=== PATIENT | female | born 1960 | race Caucasian/White ===

== ENCOUNTER → 2018-08-24 | Outpatient (CLI) | payer OTHER ==
[~2018-08-24] MED LIST: ALBU.083IS; ALBU.083IS IH; ALBU90OI; ALBU90OI6; ALBU90OI6 INH; Advair Hfa 230-12 GM; BENZ100A PO; CEPH500 PO; CIPR250 PO; CLON.5 PO; CYCL10 PO; DIPH50 PO; DOXY100 PO; FLUO20 PO; FLUSAL2505 IH; HYDACE10B PO; HYDACE5; HYDGUAL120 PO; HYDHCL10; HYOS.375ER; IBUP800 PO; IPRAIS; LEVSOD100; LEVSOD150; LEVSOD150 PO; META800; META800 PO; METF500 PO; METPRE4DP PO; METR500 PO; NAPR250; NAPR500; NEXIUM; OMEP20ER; OMEPRAZOLE MAGN20 MG; OXYACE5T PO; PROACE100 PO; ROSU10TA; RXHYDACE PO; RXPROACE PO; SERT100; SERT100 PO; SERT50; TIZANIDINE HCL2 MG; TRAM50; TRAM50 PO; TRAZ50; VENL150ER PO; Ventolin Soln3 ML INH; Zofran Odt4 MG SL
== END | disposition home or self-care (01) ==
LOC: LAB UCHC 17:20 → LAB SHORT 17:20
DX: R30.0 Dysuria (principal)
CPT/HCPCS: 87086

== ENCOUNTER 2019-06-11 02:27 | Emergency (ER) | payer OTHER ==
[~2019-06-11] VITALS: Ht 157.5 cm; Wt 97.5 kg
[~2019-06-11 02:27] MED LIST changes: -OMEPRAZOLE MAGN20 MG; +OMEPRAZOLE MAGN20 MG PO
== END 2019-06-11 03:45 | disposition home or self-care (01) ==
LOC: ER 02:27
DX: M75.51 Bursitis of right shoulder (principal); J45.909 Unspecified asthma, uncomplicated; E11.9 Type 2 diabetes mellitus without complications; G47.30 Sleep apnea, unspecified; E03.9 Hypothyroidism, unspecified; Z87.891 Personal history of nicotine dependence; Z88.5 Allergy status to narcotic agent; Z88.6 Allergy status to analgesic agent; Z88.8 Allergy status to other drugs, medicaments and biological substances; Z79.899 Other long term (current) drug therapy
CPT/HCPCS: 96372; 99282; A9270; J1885; J7512

== ENCOUNTER → 2020-02-08 | Outpatient (CLI) | payer OTHER ==
[~2020-02-08] MED LIST changes: +ALBU90OI INH; +AZELASTINE137 MCG/01; +BUSP10 PO; +DICLOFENAC SOD100 GM TP; +FOLI1 PO; +Flonase 0.05% N16 GM; +LEVSOD100 PO; +Magnesium250 MG PO; +OMEP20ER PO; +PRISTIQ ER25 MG PO; +SYMBICORT 160-4.6 GM INH; +VITAMIN B-50 C0.4 MG PO; +VITAMIN D5000 UNIT PO; +ZYRTEC10 M2 PO
== END | disposition home or self-care (01) ==
LOC: LAB 18:25 → LAB SHORT 18:25
DX: N39.0 Urinary tract infection, site not specified (principal)
CPT/HCPCS: 87086

== ENCOUNTER 2020-03-25 06:33 | Day surgery (SDC) | payer OTHER ==
[~2020-03-25] VITALS: Ht 157.5 cm; Wt 99.3 kg
[~2020-03-25 06:33] MED LIST changes: -AZELASTINE137 MCG/01; -BUSP10 PO; -DICLOFENAC SOD100 GM TP; -Flonase 0.05% N16 GM; -ZYRTEC10 M2 PO
[2020-03-25] MEDS ORDERED: ZYRTEC10 M2 PO (07:35)
[2020-03-25] MEDS ORDERED: AZELASTINE137 MCG/01 (07:35)
--- NOTE | 2020-03-25 07:38 | NUR ---
03/25/20 0738 Mayra Thomas 15ML OF BLOOD DRAWN FOR PRP. PT TOLERATED WELL.
--- NOTE | 2020-03-25 08:48 | NUR ---
03/25/20 0848 Adrián Middleton 1 MG EPI ADDED TO EACH OF THE FIRST 3 BAGS OF LR FOR IRRIGATION PER ORDER.
--- NOTE | 2020-03-25 09:47 | NUR ---
03/25/20 0947 LISA INFANTE PT U PTO RECLINER WITH SBA/ VSS ON ROOM AIR, NC WITH 2L O2 WHEN O2 SATS DROP BELOW 92% (HAVE NOT HAD TO USE SINCE TRANSFER TO STEP DOWN) PT TOELRATING SIPS OF PO INTAKE AND DENIES PAIN/NAUSEA.
== END 2020-03-25 10:33 | disposition home or self-care (01) ==
LOC: ORSCSDS 06:33
PROVIDERS: Orthopaedic Surgery
PROC: 0XU Anatomical Regions, Upper Extremities, Supplement (ICD-10-PCS; 2020-03-25)
PROC: 0RNK4ZZ Release Left Shoulder Joint, Percutaneous Endoscopic Approach (ICD-10-PCS; principal; 2020-03-25 08:00)
PROC: 0LQ24ZZ Repair Left Shoulder Tendon, Percutaneous Endoscopic Approach (ICD-10-PCS; principal; 2020-03-25 08:00)
DX: M75.112 Incomplete rotator cuff tear or rupture of left shoulder, not specified as traumatic (principal); M75.42 Impingement syndrome of left shoulder; I10 Essential (primary) hypertension; J45.909 Unspecified asthma, uncomplicated; G47.33 Obstructive sleep apnea (adult) (pediatric); E11.9 Type 2 diabetes mellitus without complications; K21.9 Gastro-esophageal reflux disease without esophagitis; E03.9 Hypothyroidism, unspecified; M79.7 Fibromyalgia; E66.01 Morbid (severe) obesity due to excess calories; Z68.41 Body mass index [BMI] 40.0-44.9, adult; Z79.899 Other long term (current) drug therapy
CPT/HCPCS: 82947; A9270; C1713; J0171; J0690; J1100; J2250; J2405; J2704; J3010; J7040; J7120

== ENCOUNTER 2020-05-05 09:48 | Emergency (ER) | payer OTHER ==
[~2020-05-05] VITALS: Ht 154.9 cm; Wt 100.2 kg
[~2020-05-05 09:48] MED LIST changes: +AZELASTINE137 MCG/01; +ZYRTEC10 M2 PO
[2020-05-05] MEDS ORDERED: SYMBICORT 160-4.6 GM INH (10:02)
[2020-05-05] MEDS ORDERED: DICLOFENAC SOD100 GM TP (10:03)
[2020-05-05] MEDS ORDERED: Flonase 0.05% N16 GM (10:04)
[2020-05-05] MEDS ORDERED: BUSP10 PO (10:08)
[2020-05-05 10:24] LABS: BASOPHILS ABSOLUTE AUTO 0.07 K/mm3 (0.00-0.23); BASOPHILS PERCENT AUTO 1 % (0-2); EOSINOPHILS ABSOLUTE AUTO 0.31 K/mm3 (0.00-0.68); EOSINOPHILS PERCENT AUTO 4 % (0-6); Hematocrit 39.2 % (33.0-51.0); Hemoglobin 13.3 g/dL (11.5-16.0); IMMATURE GRAN ABSOLUTE AUTO 0.05 K/mm3 (0.00-0.10); IMMATURE GRAN PERCENT AUTO 1 % (0-1); LYMPHOCYTES ABSOLUTE AUTO 1.68 K/mm3 (0.84-5.20); LYMPHOCYTES PERCENT AUTO 19 % (21-46); MONOCYTES ABSOLUTE AUTO 0.75 K/mm3 (0.16-1.47); MONOCYTES PERCENT AUTO 9 % (4-13); Mean Corpuscular HGB 29.8 pg (26.0-34.0); Mean Corpuscular HGB Conc 33.9 g/dL (31.5-36.5); Mean Corpuscular Volume 88 fL (80-100); Mean Platelet Volume 9.2 fL (9.1-12.4); NEUTROPHILS ABSOLUTE AUTO 5.97 K/mm3 (1.96-9.15); NEUTROPHILS PERCENT AUTO 68 % (41-73); Platelet Count 281 K/mm3 (150-400); RDW Coefficient Variation 12.2 % (11.7-14.2); RDW Standard Deviation 39.1 fL (35.1-46.3); Red Blood Cell Count 4.46 M/mm3 (3.80-5.20); White Blood Cell Count 8.83 K/mm3 (4.00-11.30)
[2020-05-05 10:43] LABS: Alanine Aminotransfer (ALT/SGP 29 U/L (12-78); Albumin, Blood 3.6 g/dL (3.4-5.0); Albumin/Globulin Ratio 1.2 (0.8-1.8); Alk Phos 81 U/L (50-136); Anion Gap 7 mmol/L (6-16); Aspartate Aminotrans (AST/SGOT 16 U/L (12-37); Bilirubin, Total 0.9 mg/dL (0.1-1.0); Blood Urea Nitrogen 10 mg/dL (8-24); Bun/Creatinine Ratio 13.6 (12.0-20.0); CO2, Blood 23 mmol/L (21-32); Calcium, Blood 8.7 mg/dL (8.5-10.1); Chloride, Blood 111 mmol/L (98-108); Creatinine, Blood 0.74 mg/dL (0.40-1.00); Globulin, Blood 3.1 g/dL (2.2-4.0); Glomerular Filtration Rate >60 (60-); Glucose, Blood 154 mg/dL (70-99); Potassium, Blood 3.6 mmol/L (3.5-5.5); Sodium, Blood 141 mmol/L (136-145); Total Protein, Blood 6.7 g/dL (6.4-8.2)
== END 2020-05-05 12:24 | disposition home or self-care (01) ==
LOC: ER 09:48
PROVIDERS: Emergency Medicine
DX: K85.90 Acute pancreatitis without necrosis or infection, unspecified (principal); J45.909 Unspecified asthma, uncomplicated; E03.9 Hypothyroidism, unspecified; E11.9 Type 2 diabetes mellitus without complications; Z79.51 Long term (current) use of inhaled steroids; Z79.899 Other long term (current) drug therapy; Z87.891 Personal history of nicotine dependence; Z88.5 Allergy status to narcotic agent; Z88.8 Allergy status to other drugs, medicaments and biological substances; Z88.1 Allergy status to other antibiotic agents
CPT/HCPCS: 36415; 74177; 80053; 83690; 85025; 99284-25; Q9967

== ENCOUNTER → 2020-10-24 | Outpatient (CLI) | payer OTHER ==
[~2020-10-24] MED LIST changes: +BUSP10 PO; +DICLOFENAC SOD100 GM TP; +Flonase 0.05% N16 GM
[2020-10-24 17:47] LABS: BASOPHILS PERCENT AUTO 0 % (0-2); EOSINOPHILS ABSOLUTE AUTO 0.01 K/mm3 (0.00-0.68); EOSINOPHILS PERCENT AUTO 0 % (0-6); Hemoglobin 13.1 g/dL (11.5-16.0); IMMATURE GRAN ABSOLUTE AUTO 0.03 K/mm3 (0.00-0.10); IMMATURE GRAN PERCENT AUTO 1 % (0-1); LYMPHOCYTES PERCENT AUTO 17 % (21-46); MONOCYTES ABSOLUTE AUTO 0.47 K/mm3 (0.16-1.47); MONOCYTES PERCENT AUTO 10 % (4-13); Mean Corpuscular HGB 30.1 pg (26.0-34.0); Mean Corpuscular HGB Conc 35.4 g/dL (31.5-36.5); Mean Corpuscular Volume 85 fL (80-100); Mean Platelet Volume 9.7 fL (9.1-12.4); NEUTROPHILS ABSOLUTE AUTO 3.37 K/mm3 (1.96-9.15); NEUTROPHILS PERCENT AUTO 72 % (41-73); Platelet Count 212 K/mm3 (150-400); RDW Coefficient Variation 12.1 % (11.7-14.2); RDW Standard Deviation 37.3 fL (35.1-46.3); Red Blood Cell Count 4.35 M/mm3 (3.80-5.20); White Blood Cell Count 4.68 K/mm3 (4.00-11.30)
[2020-10-24 18:06] LABS: Anion Gap 11 mmol/L (6-16); Blood Urea Nitrogen 12 mg/dL (8-24); CO2, Blood 27 mmol/L (21-32); Chloride, Blood 100 mmol/L (98-108); Creatinine, Blood 0.92 mg/dL (0.40-1.00); Glomerular Filtration Rate >60 (60-); Glucose, Blood 90 mg/dL (70-99); Potassium, Blood 3.7 mmol/L (3.5-5.5); Sodium, Blood 138 mmol/L (136-145); Thyroid Stimulating Hormone 3.406 uIU/mL (0.360-4.800); Troponin I <0.017 ng/mL (0.000-0.040)
== END | disposition home or self-care (01) ==
LOC: LAB 17:40 → LAB SHORT 17:40
PROVIDERS: Physician Assistant Surgical
DX: R07.9 Chest pain, unspecified (principal); R53.83 Other fatigue
CPT/HCPCS: 80048; 84443; 84484; 85025

== ENCOUNTER → 2020-10-24 | Outpatient (CLI) | payer OTHER | END | disposition home or self-care (01) | LOC: LAB 17:50 → LAB SHORT 17:50 | DX: U07.1 COVID-19 (principal) | CPT/HCPCS: U0003 ==

== ENCOUNTER 2021-08-27 09:28 | Day surgery (SDC) | payer OTHER ==
[~2021-08-27] VITALS: Ht 157.5 cm; Wt 104.0 kg
[2021-08-27] MEDS ORDERED: DESV50 PO (11:00)
[2021-08-27] MEDS ORDERED: Neurontin 100100 MG PO (11:01)
--- NOTE | 2021-08-27 11:14 | NUR ---
08/27/21 1114 Ernestina Rico MONITOR INTACT WITH CONTINUOUS PULSE OXIMETRY AND INTERMITTENT BP. O2 VIA N/C INTACT THROUGHOUT SEDATION/PROCEDURE.See Anesthesia record.
== END 2021-08-27 23:12 | disposition home or self-care (01) ==
LOC: ORSCMMR 09:28 → ORD 10:45 → ORSCMMR 10:45
PROVIDERS: Internal Medicine Gastroenterology
PROC: 0DBE8ZX Excision of Large Intestine, Via Natural or Artificial Opening Endoscopic, Diagnostic (ICD-10-PCS; principal; 2021-08-27 10:45)
PROC: 0DB98ZX Excision of Duodenum, Via Natural or Artificial Opening Endoscopic, Diagnostic (ICD-10-PCS; principal; 2021-08-27 10:45)
PROC: 0DB78ZX Excision of Stomach, Pylorus, Via Natural or Artificial Opening Endoscopic, Diagnostic (ICD-10-PCS; principal; 2021-08-27 10:45)
PROC: 0DBN8ZX Excision of Sigmoid Colon, Via Natural or Artificial Opening Endoscopic, Diagnostic (ICD-10-PCS; principal; 2021-08-27 10:45)
PROC: 0DB48ZX Excision of Esophagogastric Junction, Via Natural or Artificial Opening Endoscopic, Diagnostic (ICD-10-PCS; principal; 2021-08-27 10:45)
PROC: 0DB58ZX Excision of Esophagus, Via Natural or Artificial Opening Endoscopic, Diagnostic (ICD-10-PCS; principal; 2021-08-27 10:45)
PROC: 0DBC8ZX Excision of Ileocecal Valve, Via Natural or Artificial Opening Endoscopic, Diagnostic (ICD-10-PCS; principal; 2021-08-27 10:45)
DX: K21.00 Gastro-esophageal reflux disease with esophagitis, without bleeding (principal); R19.4 Change in bowel habit; K25.9 Gastric ulcer, unspecified as acute or chronic, without hemorrhage or perforation; K63.5 Polyp of colon; K44.9 Diaphragmatic hernia without obstruction or gangrene; G47.33 Obstructive sleep apnea (adult) (pediatric); F17.210 Nicotine dependence, cigarettes, uncomplicated; J45.909 Unspecified asthma, uncomplicated; E11.9 Type 2 diabetes mellitus without complications; E66.01 Morbid (severe) obesity due to excess calories; Z68.41 Body mass index [BMI] 40.0-44.9, adult; Z79.899 Other long term (current) drug therapy
CPT/HCPCS: 82947; 88305; 88312; 88342; A9270; J2704; J7120

== ENCOUNTER 2023-06-21 16:35 | Emergency (ER) | payer OTHER ==
[~2023-06-21] VITALS: Ht 154.9 cm; Wt 98.9 kg
[~2023-06-21 16:35] MED LIST changes: +DESV50 PO; +Neurontin 100100 MG PO
[2023-06-21 17:37] LABS: BASOPHILS ABSOLUTE AUTO 0.08 K/mm3 (0.00-0.23); BASOPHILS PERCENT AUTO 1 % (0-2); EOSINOPHILS ABSOLUTE AUTO 0.38 K/mm3 (0.00-0.68); EOSINOPHILS PERCENT AUTO 5 % (0-6); Hematocrit 34.5 % (33.0-51.0); Hemoglobin 11.4 g/dL (11.5-16.0); IMMATURE GRAN ABSOLUTE AUTO 0.09 K/mm3 (0.00-0.10); IMMATURE GRAN PERCENT AUTO 1 % (0-1); LYMPHOCYTES ABSOLUTE AUTO 1.78 K/mm3 (0.84-5.20); LYMPHOCYTES PERCENT AUTO 21 % (21-46); MONOCYTES ABSOLUTE AUTO 0.78 K/mm3 (0.16-1.47); MONOCYTES PERCENT AUTO 9 % (4-13); Mean Corpuscular HGB 28.9 pg (26.0-34.0); Mean Corpuscular Volume 87 fL (80-100); NEUTROPHILS ABSOLUTE AUTO 5.41 K/mm3 (1.96-9.15); NEUTROPHILS PERCENT AUTO 63 % (41-73); Platelet Count 563 K/mm3 (150-400); RDW Coefficient Variation 12.3 % (11.7-14.2); RDW Standard Deviation 39.3 fL (35.1-46.3); Red Blood Cell Count 3.95 M/mm3 (3.80-5.20); White Blood Cell Count 8.52 K/mm3 (4.00-11.30)
[2023-06-21 18:06] LABS: Albumin, Blood 3.4 g/dL (3.4-5.0); Bilirubin, Total 0.4 mg/dL (0.1-1.0); Bun/Creatinine Ratio 15.5 (12.0-20.0); Creatinine, Blood 0.71 mg/dL (0.40-1.00); Globulin, Blood 3.4 g/dL (2.2-4.0); Potassium, Blood 4.1 mmol/L (3.5-5.5); Total Protein, Blood 6.8 g/dL (6.4-8.2)
[2023-06-21 20:30] VITALS: BP 136/78
[2023-06-21] MEDS ORDERED: Ketorolac Tromethamine 15mg Vial IV ONE (20:30)
[2023-06-21] MEDS ORDERED: Lidocaine 4% 1 Patch TOP ONE (20:30)
[2023-06-21] MEDS ORDERED: LIDOCAINE1 EACH TOP (20:32)
[2023-06-21] MEDS ORDERED: Robaxin750 MG PO (20:32)
== END 2023-06-21 20:58 | disposition home or self-care (01) ==
LOC: ER 16:35
PROVIDERS: Physician Assistant
DX: M54.42 Lumbago with sciatica, left side (principal); J45.909 Unspecified asthma, uncomplicated; Z79.890 Hormone replacement therapy; Z79.899 Other long term (current) drug therapy; Z88.5 Allergy status to narcotic agent; Z88.8 Allergy status to other drugs, medicaments and biological substances; Z88.1 Allergy status to other antibiotic agents; Z88.6 Allergy status to analgesic agent; Z98.1 Arthrodesis status; Z87.891 Personal history of nicotine dependence
CPT/HCPCS: 80053; 85025; 96374; 99283-25; A9270; J1885

== ENCOUNTER 2025-02-04 06:09 | Day surgery (SDC) | payer OTHER ==
[~2025-02-04] VITALS: Ht 157.5 cm; Wt 75.6 kg
[~2025-02-04 06:09] MED LIST changes: +LIDOCAINE1 EACH TOP; +Robaxin750 MG PO
[2025-02-04] MEDS ORDERED: CefTRIAXone 2000 MG Vial ONE (06:15)
[2025-02-04] MEDS ORDERED: MELO7.5 PO (06:36)
[2025-02-04] MEDS ORDERED: Midazolam HCl 1MG / ML 2ML Vial ONE (06:56)
[2025-02-04] MEDS ORDERED: FentaNYL Citrate 50 MCG/ML 2 ML Injection ONE (06:56)
[2025-02-04] MEDS ORDERED: Bupivacaine 0.5% HCl 5 MG/ML 30MLVIAL ONE (06:57)
[2025-02-04] MEDS ORDERED: Ondansetron HCl 2 MG / ML 2ML Vial ONE (06:57)
[2025-02-04] MEDS ORDERED: Rocuronium Bromide 10 MG/ML 5ML Injection IV ONE (06:57)
[2025-02-04] MEDS ORDERED: Bupivacaine HCl 0.25% 30 ML Injection ONE (06:57)
[2025-02-04] MEDS ORDERED: Dexamethasone Sod Phos 10 MG/ML 1ML VIAL ONE (06:57)
--- NOTE | 2025-02-04 07:39 | NUR ---
02/04/25 0739 Mayra Thomas BLOCK DONE IN PRE OP WITH DR SUNSHINE. TIMEOUT DONE PRIOR TO BLOCK. PT TOLERATED BLOCK WELL. PT WAS ON 3L O2 VIA NASAL CANULA DURING BLOCK.
[2025-02-04] MEDS ORDERED: Sugammadex Sodium 200 MG/2ML SDV (100 MG/ML) ONE (09:19)
--- NOTE | 2025-02-04 09:55 | NUR ---
02/04/25 0955 Swathi Bansal PT. DENIES PAIN OR NAUSEA. PT. COLD & SHIVERING, PT. GIVEN WARM BLANKETS & BARE HUGGER. PT. ABLE TO FEEL TOUCH TO FINGER BUT NUMB. PT. ABLE TO MOVE HER RIGHT FINGERS ON OPERATIVE SITE.
--- NOTE | 2025-02-04 10:05 | NUR ---
02/04/25 [email or web address] Nyla Wright REPORT FROM IDAL[facility] PRIEST, IN PACU.
[2025-02-04 10:49] VITALS: BP 117/80
== END 2025-02-04 11:28 | disposition home or self-care (01) ==
LOC: ORSCSDS 06:09
PROVIDERS: Orthopaedic Surgery
PROC: 0LM14ZZ Reattachment of Right Shoulder Tendon, Percutaneous Endoscopic Approach (ICD-10-PCS; principal; 2025-02-04 07:30)
PROC: 0RNJ4ZZ Release Right Shoulder Joint, Percutaneous Endoscopic Approach (ICD-10-PCS; principal; 2025-02-04 07:30)
PROC: 0LS34ZZ Reposition Right Upper Arm Tendon, Percutaneous Endoscopic Approach (ICD-10-PCS; principal; 2025-02-04 07:30)
DX: M75.111 Incomplete rotator cuff tear or rupture of right shoulder, not specified as traumatic (principal); M75.21 Bicipital tendinitis, right shoulder; M75.41 Impingement syndrome of right shoulder; G47.33 Obstructive sleep apnea (adult) (pediatric); J45.909 Unspecified asthma, uncomplicated; E03.9 Hypothyroidism, unspecified; F41.9 Anxiety disorder, unspecified; M79.7 Fibromyalgia; Z79.899 Other long term (current) drug therapy
CPT/HCPCS: 82947; C1713; J0166; J0696; J1100; J2250; J2405; J2704; J3010; J7120